=== PATIENT | female | born 1960 | race Caucasian/White ===

== ENCOUNTER 2017-08-15 15:11 | Emergency (ER) | payer SELFPAY ==
[~2017-08-15] VITALS: Ht 170.2 cm; Wt 79.0 kg
[~2017-08-15 15:11] MED LIST: ACIP20TA19 PO; ALBU1AER INH; ASPI81TA11 PO; ATOR20TA PO; CLOP75 PO; LORA-392 PO; MEDR4PAK3 PO; ZITH250T PO
[2017-08-15 15:32] VITALS: BP 158/88; PULSE 78; RESP 18; TEMP 97.8; O2SAT 97
[2017-08-15 15:41] VITALS: RESP 18; O2SAT 97
--- NOTE | 2017-08-15 15:42 | PD ---
HPI Chief Complaint: Respiratory Symptoms Time Seen by Provider: 15:15 Travel History International Travel<30 days: No Contact w/Intl Traveler<30days: No Traveled to known affect area: No History of Present Illness HPI The patient is a 56-year-old female who presents to the emergency department for left-sided chest pain. The patient states she developed a cough approximately 1-2 weeks ago. The patient was in [place], where she lives , and was evaluated by her physician. The patient was placed on cefuroxime at that time, has been taking his twice a day. She then drove down from [place], to [place], [place], for bike week. The pain is on the left side, burning, intermittent, occasionally worse with coughing. She denies any shortness of breath or wheezing. She does have a history of COPD and CAD with previous stent placement. The patient states her symptoms with chest pain were shortness of breath, she had no chest pain when her stents were placed. The patient denies any history of pulmonary embolism, DVT, or congestive heart failure. She denies any fever. Symptoms are moderate. The patient does note a cough for the last one to 2 weeks which has been dry and mostly nonproductive. PFSH Past Medical History Cardiovascular Problems: Yes (ID, STENT X 1 ) COPD: Yes Coronary Artery Disease: Yes Diminished Hearing: No Respiratory: Yes (COPD) Immunizations Current: Yes ?: Not Past Surgical History Appendectomy: Yes Cardiac Surgery: Yes (stent) Hysterectomy: Yes Tonsillectomy: Yes Social History Alcohol Use: No Tobacco Use: Yes (1/2) Substance Use: No Allergies-Medications (Allergen,Severity, Reaction): Coded Allergies: Sulfa (Sulfonamide Antibiotics) (Unverified Allergy, Severe, Anaphylaxis, 08/15/17) Reported Meds & Prescriptions Reported Meds & Active Scripts Active Tessalon Perles (Benzonatate) 100 Mg Cap 100 Mg PO TID PRN 7 Days Prednisone 20 Mg Tab 60 Mg PO DAILY 5 Days Mucinex DM (Dextromethorphan-Guaifenesin) 30-600 Mg Tab 1 Tab PO BID PRN 7 Days Reported Librax (Chlordiazepoxide/Clidinium) 5-2.5 Mg Cap 1 Cap PO QID Nexium (Esomeprazole DR) 40 Mg Capdr 40 Mg PO DAILY Ativan (Lorazepam) 0.5 Mg Tab 0.5 Mg PO Q6H PRN Atorvastatin (Atorvastatin Calcium) 80 Mg Tab 80 Mg PO HS Aspirin 81 Mg Chew 81 Mg CHEW DAILY Review of Systems Except as stated in HPI: all other systems reviewed are Neg General / Constitutional: No: Fever Cardiovascular: Positive: Chest Pain or Discomfort, No: Dyspnea on exertion Respiratory: Positive: Cough, Wheezing, No: Shortness of Breath Gastrointestinal: Positive: Other (history of GERD), No: Nausea, Vomiting, Abdominal Pain Musculoskeletal: No: Edema Neurologic: No: Dizziness Physical Exam Narrative GENERAL: Awake, alert, pleasant 56-year-old female who appears her stated age and is in no acute respiratory distress. SKIN: Focused skin assessment warm/dry. HEAD: Atraumatic. Normocephalic. EYES: Pupils equal and round. No scleral icterus. No injection or drainage. ENT: No nasal bleeding or discharge. Mucous membranes pink and moist. NECK: Trachea midline. No JVD. CARDIOVASCULAR: Regular rate and rhythm. No murmur appreciated. Heart rate in the 70s. RESPIRATORY: No accessory muscle use. Few scattered rhonchi. Few wheezes noted in the left base. GASTROINTESTINAL: Abdomen soft, non-tender, nondistended. MUSCULOSKELETAL: No obvious deformities. No clubbing. No cyanosis. No edema. NEUROLOGICAL: Awake and alert. No obvious cranial nerve deficits. Motor grossly within normal limits. Normal speech. PSYCHIATRIC: Appropriate mood and affect; insight and judgment normal. Data Data Last Documented VS Vital Signs Date Time Temp Pulse Resp B/P (MAP) Pulse Ox O2 Delivery O2 Flow Rate FiO2 08/15/17 15:41 97 08/15/17 15:41 18 Room Air 08/15/17 15:32 97.8 78 158/88 (111) Orders Orders Complete Blood Count With Diff (08/15/17 15:36) Comprehensive Metabolic Panel (08/15/17 15:36) Magnesium (Mg) (08/15/17 15:36) Ckmb (Isoenzyme) Profile (08/15/17 15:36) Troponin I (08/15/17 15:36) Iv Access Insert/Monitor (08/15/17 15:36) Ecg Monitoring (08/15/17 15:36) Oximetry (08/15/17 15:36) Oxygen Administration (08/15/17 15:36) Chest, Single Ap (08/15/17 15:36) Sodium Chloride 0.9% Flush (Ns Flush) (08/15/17 15:45) Methylprednisolone So Succ Inj (Solumedr (08/15/17 15:45) Albuterol-Ipratropium Neb (Duoneb Neb) (08/15/17 15:45) Sodium Chlorid 0.9% 500 Ml Inj (Ns 500 M (08/15/17 15:45) CKMB (08/15/17 15:55) CKMB% (08/15/17 15:55) Ed Discharge Order (08/15/17 16:56) Electrocardiogram (08/15/17 15:27) Labs Laboratory Tests Test 08/15/17 15:55 White Blood Count 9.8 TH/MM3 Red Blood Count 4.80 MIL/MM3 Hemoglobin 14.0 GM/DL Hematocrit 42.3 % Mean Corpuscular Volume 88.2 FL Mean Corpuscular Hemoglobin 29.1 PG Mean Corpuscular Hemoglobin Concent 33.0 % Red Cell Distribution Width 13.0 % Platelet Count 323 TH/MM3 Mean Platelet Volume 8.1 FL Neutrophils (%) (Auto) 57.0 % Lymphocytes (%) (Auto) 35.0 % Monocytes (%) (Auto) 4.9 % Eosinophils (%) (Auto) 2.4 % Basophils (%) (Auto) 0.7 % Neutrophils # (Auto) 5.6 TH/MM3 Lymphocytes # (Auto) 3.4 TH/MM3 Monocytes # (Auto) 0.5 TH/MM3 Eosinophils # (Auto) 0.2 TH/MM3 Basophils # (Auto) 0.1 TH/MM3 CBC Comment DIFF FINAL Differential Comment Blood Urea Nitrogen 8 MG/DL Creatinine 0.84 MG/DL Random Glucose 132 MG/DL Total Protein 7.2 GM/DL Albumin 3.9 GM/DL Calcium Level 8.9 MG/DL Magnesium Level 2.1 MG/DL Alkaline Phosphatase 95 U/L Aspartate Amino Transf (AST/SGOT) 16 U/L Alanine Aminotransferase (ALT/SGPT) 24 U/L Total Bilirubin 0.2 MG/DL Sodium Level 139 MEQ/L Potassium Level 3.8 MEQ/L Chloride Level 105 MEQ/L Carbon Dioxide Level 27.1 MEQ/L Anion Gap 7 MEQ/L Estimat Glomerular Filtration Rate 70 ML/MIN Total Creatine Kinase 101 U/L Creatine Kinase MB 1.1 NG/ML Troponin I LESS THAN 0.02 NG/ML MDM Medical Decision Making Medical Screen Exam Complete: Yes Emergency Medical Condition: Yes Medical Record Reviewed: Yes Interpretation(s) EKG reveals normal sinus rhythm with a rate of 75. RSR prime in V1. Differential Diagnosis Differential diagnosis includes bronchitis, pneumonia, COPD exacerbation, pleurisy, pericardial effusion, cardiomyopathy, pleural effusion, ACS, STEMI. Narrative Course IV was established, labs are drawn and sent, and the patient was placed on cardiac telemetry monitoring and continuous pulse oximetry monitoring. EKG was ordered and interpreted. Chest x-rays obtained. The patient was administered Solu-Medrol and DuoNeb's 2. The patient was signed out to the oncoming physician at 4 PM with chest x-ray and laboratory evaluation pending. If workup is negative and symptoms improve the patient can be discharged home on steroids and albuterol. Scripts Benzonatate (Tessalon Perles) 100 Mg Cap 100 MG PO TID Y for COUGH for 7 Days, CAP 0 Refills Prov: Ankit Cesar MD 08/15/17 Prednisone (Prednisone) 20 Mg Tab 60 MG PO DAILY for 5 Days, #15 TAB 0 Refills Prov: Ankit Cesar MD 08/15/17 Dextromethorphan-Guaifenesin (Mucinex DM) 30-600 Mg Tab 1 TAB PO BID Y for CHEST CONGESTION AND/OR COUGH for 7 Days, #14 TAB 0 Refills Prov: Ankit Cesar MD 08/15/17 Condition: Stable Slade Hernandez MD Aug 15, 2017 15:42
[2017-08-15] MEDS ORDERED: SODIUM CHLORID 0.9% 500 ML INJ 500 ML IV ONE (15:45)
[2017-08-15] MEDS ORDERED: SODIUM CHLORIDE 0.9% FLUSH 10 ML FLUSH IVF PRN (15:45)
[2017-08-15] MEDS ORDERED: methylPREDNISolone SOD SUCC 125 MG/2 ML VIAL IV PUSH ONE (15:45)
[2017-08-15] MEDS: RESP: ALBUTEROL 2.5 MG/IPRATROPIUM 0.5 MG NEB (SCH) INH (15:46)
[2017-08-15] MEDS ORDERED: LORA-392 PO (16:01)
[2017-08-15] MEDS ORDERED: ASPI-516 CHEW (16:01)
[2017-08-15] MEDS ORDERED: NEXI40CA PO (16:01)
[2017-08-15] MEDS ORDERED: ATOR80TA45 PO (16:01)
[2017-08-15] MEDS ORDERED: LIBRAX PO (16:01)
[2017-08-15 16:03] LABS: AUTOMATED NEUTROPHIL # 5.6 TH/MM3 (1.8-7.7); BASOPHIL # 0.1 TH/MM3 (0-0.2); BASOPHIL % 0.7 % (0.0-2.0); EOSINOPHIL # 0.2 TH/MM3 (0-0.4); EOSINOPHIL % 2.4 % (0.0-4.0); HEMATOCRIT 42.3 % (35.0-46.0); LYMPHOCYTE # 3.4 TH/MM3 (1.0-4.8); MEAN CELL VOLUME 88.2 FL (80.0-100.0); MEAN CORPUSCULAR HEMOGLOBIN 29.1 PG (27.0-34.0); MEAN PLATELET VOLUME 8.1 FL (7.0-11.0); MONO % 4.9 % (0.0-8.0); MONOCYTE # 0.5 TH/MM3 (0-0.9); PLATELET COUNT 323 TH/MM3 (150-450); WHITE BLOOD COUNT 9.8 TH/MM3 (4.0-11.0)
--- NOTE | 2017-08-15 16:08 | RADRPT ---
EXAM DATE/TIME: 08/15/2017 15:46 [facility] COMPARISON: No previous studies available for comparison. INDICATIONS : Short of breath. Chest pain. Cough. MEDICAL HISTORY : Cholelithiasis. Myocardial infarction. Coronary artery disease. SURGICAL HISTORY : Cardiac stent. ENCOUNTER: Initial ACUITY: 1 week PAIN SCORE: 2/10 LOCATION: Left chest FINDINGS: A single view of the chest demonstrates the lungs to be symmetrically aerated without evidence of mas s, infiltrate or effusion. The cardiomediastinal contours are unremarkable. Osseous structures are intact. CONCLUSION: 1. No acute cardiopulmonary disease. Denton Ramos MD on August 15, 2017 at 16:02 Board Certified Radiologist. This report was verified electronically.
[2017-08-15 16:11] LABS: CHLORIDE 105 MEQ/L (98-107); SODIUM (NA) 139 MEQ/L (136-145)
[2017-08-15 16:14] LABS: CALCIUM 8.9 MG/DL (8.5-10.1)
[2017-08-15 16:15] LABS: ALBUMIN 3.9 GM/DL (3.4-5.0); BICARBONATE 27.1 MEQ/L (21.0-32.0); BLOOD UREA NITROGEN 8 MG/DL (7-18); GLUCOSE,RANDOM 132 MG/DL (74-106); MAGNESIUM 2.1 MG/DL (1.5-2.5)
[2017-08-15 16:18] LABS: ALT (GPT) 24 U/L (10-53); AST (GOT) 16 U/L (15-37); CREATININE 0.84 MG/DL (0.50-1.00); GLOMERULAR FILTRATION RATE 70 ML/MIN (>89)
[2017-08-15 16:19] LABS: TOTAL BILIRUBIN ADULT 0.2 MG/DL (0.2-1.0); TOTAL PROTEIN 7.2 GM/DL (6.4-8.2)
[2017-08-15 16:21] LABS: ALKALINE PHOSPHATASE 95 U/L (45-117)
[2017-08-15 16:23] LABS: TROPONIN I LESS THAN 0.02 NG/ML (0.02-0.05)
[2017-08-15] MEDS ORDERED: BENZ100 PO (16:56)
[2017-08-15] MEDS ORDERED: PRED20 PO (16:56)
[2017-08-15] MEDS ORDERED: HUMIBIDDM PO (16:56)
--- NOTE | 2017-08-15 16:56 | PD ---
Data Data Last Documented VS Vital Signs Date Time Temp Pulse Resp B/P (MAP) Pulse Ox O2 Delivery O2 Flow Rate FiO2 08/15/17 15:41 97 08/15/17 15:41 18 Room Air 08/15/17 15:32 97.8 78 158/88 (111) Orders Orders Complete Blood Count With Diff (08/15/17 15:36) Comprehensive Metabolic Panel (08/15/17 15:36) Magnesium (Mg) (08/15/17 15:36) Ckmb (Isoenzyme) Profile (08/15/17 15:36) Troponin I (08/15/17 15:36) Iv Access Insert/Monitor (08/15/17 15:36) Ecg Monitoring (08/15/17 15:36) Oximetry (08/15/17 15:36) Oxygen Administration (08/15/17 15:36) Chest, Single Ap (08/15/17 15:36) Sodium Chloride 0.9% Flush (Ns Flush) (08/15/17 15:45) Methylprednisolone So Succ Inj (Solumedr (08/15/17 15:45) Albuterol-Ipratropium Neb (Duoneb Neb) (08/15/17 15:45) Sodium Chlorid 0.9% 500 Ml Inj (Ns 500 M (08/15/17 15:45) CKMB (08/15/17 15:55) CKMB% (08/15/17 15:55) Ed Discharge Order (08/15/17 16:56) Electrocardiogram (08/15/17 15:27) Labs Laboratory Tests Test 08/15/17 15:55 White Blood Count 9.8 TH/MM3 Red Blood Count 4.80 MIL/MM3 Hemoglobin 14.0 GM/DL Hematocrit 42.3 % Mean Corpuscular Volume 88.2 FL Mean Corpuscular Hemoglobin 29.1 PG Mean Corpuscular Hemoglobin Concent 33.0 % Red Cell Distribution Width 13.0 % Platelet Count 323 TH/MM3 Mean Platelet Volume 8.1 FL Neutrophils (%) (Auto) 57.0 % Lymphocytes (%) (Auto) 35.0 % Monocytes (%) (Auto) 4.9 % Eosinophils (%) (Auto) 2.4 % Basophils (%) (Auto) 0.7 % Neutrophils # (Auto) 5.6 TH/MM3 Lymphocytes # (Auto) 3.4 TH/MM3 Monocytes # (Auto) 0.5 TH/MM3 Eosinophils # (Auto) 0.2 TH/MM3 Basophils # (Auto) 0.1 TH/MM3 CBC Comment DIFF FINAL Differential Comment Blood Urea Nitrogen 8 MG/DL Creatinine 0.84 MG/DL Random Glucose 132 MG/DL Total Protein 7.2 GM/DL Albumin 3.9 GM/DL Calcium Level 8.9 MG/DL Magnesium Level 2.1 MG/DL Alkaline Phosphatase 95 U/L Aspartate Amino Transf (AST/SGOT) 16 U/L Alanine Aminotransferase (ALT/SGPT) 24 U/L Total Bilirubin 0.2 MG/DL Sodium Level 139 MEQ/L Potassium Level 3.8 MEQ/L Chloride Level 105 MEQ/L Carbon Dioxide Level 27.1 MEQ/L Anion Gap 7 MEQ/L Estimat Glomerular Filtration Rate 70 ML/MIN Total Creatine Kinase 101 U/L Creatine Kinase MB 1.1 NG/ML Troponin I LESS THAN 0.02 NG/ML MDM Supervised Visit with DARIN: No Narrative Course Patient CARE assume from Dr. Slade Hernandez at 1600, this 56-year-old female who has had some intermittent cough and shortness of breath for the past few weeks, this symptoms started prior to her coming down here from [facility] for bike week. She does have a history of cigarette smoking states that she quit a day ago. My initial assessment of the patient was after breathing treatments and she states she is almost 100% down feeling much better like to go home. I think the diagnosis of pulmonary embolism this patient is highly unlikely, the diagnosis of ACS is also highly unlikely. She is not having any chest pain symptoms for me. I discussed with her empiric steroids, she has all of her inhalers at home, discussed symptom at management return to ED criteria. Diagnosis Primary Impression: Bronchitis Med/Other Pt SpecificInfo: Prescription(s) given Scripts Benzonatate (Tessalon Perles) 100 Mg Cap 100 MG PO TID Y for COUGH for 7 Days, CAP 0 Refills Prov: Ankit Cesar MD 08/15/17 Prednisone (Prednisone) 20 Mg Tab 60 MG PO DAILY for 5 Days, #15 TAB 0 Refills Prov: Ankit Cesar MD 08/15/17 Dextromethorphan-Guaifenesin (Mucinex DM) 30-600 Mg Tab 1 TAB PO BID Y for CHEST CONGESTION AND/OR COUGH for 7 Days, #14 TAB 0 Refills Prov: Ankit Cesar MD 08/15/17 Disposition: 01 DISCHARGE HOME Condition: Stable Ankit Cesar MD Aug 15, 2017 16:56
--- NOTE | 2017-08-16 23:42 | EKG ---
Date Performed: 08/15/2017 Time Performed: 15:27:57 PTAGE: 56 years EKG: Sinus rhythm POSSIBLE RIGHT VENTRICULAR CONDUCTION DELAY BORDERLINE ECG NO PREVIOUS TRACING DOCTOR: Aaron Finch Interpretating Date/Time 08/16/2017 23:39:33
== END 2017-08-15 17:39 | disposition home or self-care (01) ==
LOC: PHED 15:11
DX: J40 Bronchitis, not specified as acute or chronic (principal); R94.31 Abnormal electrocardiogram [ECG] [EKG]; R05 Cough; J44.9 Chronic obstructive pulmonary disease, unspecified; I25.10 Atherosclerotic heart disease of native coronary artery without angina pectoris; F17.210 Nicotine dependence, cigarettes, uncomplicated
CPT/HCPCS: 71045; 80053; 82550; 82552; 83735; 84484; 85025; 93005; 94640; 94664; 96374; 99285; J2930; J7040